=== PATIENT | male | born 1980 | race Caucasian/White ===

== ENCOUNTER 2017-08-22 12:11 | Inpatient (IN) | payer BC, OTHER ==
[~2017-08-22] VITALS: Ht 185.4 cm; Wt 104.3 kg
[2017-08-22] MEDS ORDERED: MIRALAX 17 GM POWD.PACK PO PRN (14:45)
[2017-08-22] MEDS ORDERED: ACETAMINOPHEN 325 MG TABLET PO PRN (14:45)
[2017-08-22] MEDS ORDERED: DICYCLOMINE HCL 20 MG TABLET PO PRN (14:45)
[2017-08-22] MEDS ORDERED: LORAZEPAM 2 MG/1 ML VIAL IM PRN (14:45)
[2017-08-22] MEDS ORDERED: THIAMINE HCL 200 MG/2 ML VIAL IM ONE (14:45)
[2017-08-22] MEDS ORDERED: LOPERAMIDE HCL 2 MG CAPSULE PO PRN ×2 (14:45)
[2017-08-22] MEDS ORDERED: MAGNESIUM HYDROXIDE 30 ML LIQUID UDC PO PRN (14:45)
--- NOTE | 2017-08-22 14:59 | NUR ---
PRE ASSESSMENT: A 36 Y O MALE IN INTAKE. HIS GAIT IS STEADY. BP 137/101 P 100 96% O2 SAT. HE STATES HE HAS BEEN ON A 6 DAY DRINKING ETOH BINGE. HE STATES HE HAD 60 DAYS SOBER. HE IS EMOTIONAL AND STATES HE WOULD RATHER TALK IN PRIVATE THERE IS ANOTHER PATIENT PRESENT AND HE WANTS PRIVACY. WILL ASSESS ON UNIT.
[2017-08-22] MEDS ORDERED: DEXL60CA3 PO (15:06)
[2017-08-22] MEDS ORDERED: FLUO20CA36 PO (15:07)
[2017-08-22 15:21] LABS: *AMPHETAMINE, URINE NEGATIVE (NEGATIVE); *BARBITURATE, URINE NEGATIVE (NEGATIVE); *CANNABINOID, URINE NEGATIVE (NEGATIVE); *COCCAINE, URINE NEGATIVE (NEGATIVE); *OPIATE, URINE NEGATIVE (NEGATIVE); *PHENCYCLIDINE SCREEN,URINE NEGATIVE (NEGATIVE)
[2017-08-22] MEDS: ONDANSETRON ODT 4 MG TAB.RAPDIS SL PRN (16:16)
[2017-08-22 16:20] LABS: BASOPHILS % (AUTO) 0.2 % (0.0-2.0); EOSINOPHILS % (AUTO) 0.2 % (0.0-7.0); HEMATOCRIT 50.7 % (40-50); HEMOGLOBIN 17.1 G/DL (14.0-18.0); LYMPHOCYTES # (AUTO) 1.8 K/UL (0.8-4.8); LYMPHOCYTES % (AUTO) 30.2 % (20.5-51.5); MEAN CORPUSCULAR HEMOGLOBIN 27.7 UUG (27.0-31.0); MEAN CORPUSCULAR HGB CONC 34 g/dL (32.0-37.0); MEAN CORPUSCULAR VOLUME 82.1 FL (82.0-92.0); MONOCYTES # (AUTO) 0.4 K/UL (0.1-1.30); MONOCYTES % (AUTO) 6.3 % (0.0-11.0); NEUTROPHILS # (AUTO) 3.7 K/UL (1.8-8.9); NEUTROPHILS % (AUTO) 63.1 % (38.5-71.5); PLATELET COUNT (AUTO) 166 K/UL (150-450); RED BLOOD CELL COUNT(AUTO) 6.18 MIL/UL (4.7-6.1); WHITE BLOOD COUNT (AUTO) 5.9 K/UL (4.0-11.2)
[2017-08-22] MEDS: LORAZEPAM 1 MG TABLET PO PRN ×3 (16:23→23:40)
--- NOTE | 2017-08-22 16:30 | NUR ---
ADMISSION: A 36 YO MALE ADMITTED FOR MEDICALLY SUPERVISED WITHDRAWAL OF ETOH. HE REPORTS DRINKING 1 LITER OF VODKA DAILY SINCE . HE STATES HE LAST DRANK 300 ML OF VODKA EARLY TODAY BUT HAS BEEN DRINKING AROUND THE CLOCK WITH VERY LITTLE SLEEP. HE DENIES OTHER DRUG USE. HE STATES HE HAD 60 DAYS OF SOBRIETY AND RELAPSED ON THE . HE WAS ATTENDING [facility] IN [facility]. HE WAS ALSO AT [facility] THIS YEAR FOR RESIDENTIAL. HE LIVES WITH HIS AND TWO KIDS. HE STATES HE CANNOT STOP DRINKING ON HIS OWN AND NEEDS HELP. 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 HE PRESENTS FIDGETY AND RESTLESS WITH ANXIOUS MOOD AND CONGRUENT AFFECT. HE IS SWEATING AROUND BROW AREA AND STATES HE IS CRAVING A DRINK.OFFERED HE REPORTS HISTORY OF DEPRESSION AND GERD. HE TAKES 60 MG OF PROZAC DAILY AND DEXILANT AT HOME. BE BROUGHT PROZAC IN WITH HIM. PT DENIES PCP. HE DENIES S/I AND H/I. PT HAS EMOTIONAL OUTBURSTS DURING ASSESSMENT AND DISCUSSES HOW BAD HE HAS MESSED UP HIS LIFE. ALAN 15 ON ADMISSION. ORIENTED PT TO STAFF AND UNIT. ENCOURAGED INCREASED FLUIDS. PT C/O N/V AND HAD TO RUN INTO BATHROOM TO VOMIT DURING ASSESSMENT. WILL ADMINISTER ZOFRAN PRN ORDERED. WILL CONTINUE TO MONITOR AND PROVIDE SAFE AND SUPPORTIVE ENVIRONMENT. Addendum: 08/22/17 at 1716 by AJIT BURT RN ALAN 16 ATIVAN 2 MG PO PRN ADMINISTERED ORDERED AFTER ADMINISTERING THIAMINE IM AND ZOFRAN ODT PRN. WILL MONITOR EFFECTIVENESS.
[2017-08-22 16:32] LABS: BILIRUBIN,TOTAL 0.9 mg/dL (0.2-1.0); MAGNESIUM 1.7 mg/dL (1.8-2.4); POTASSIUM 3.5 mmol/L (3.5-5.1); TOTAL PROTEIN, SERUM 8.4 g/dL (6.4-8.2)
[2017-08-22 16:37] VITALS: BP 137/101
--- NOTE | 2017-08-22 17:30 | NUR ---
PRN ATIVAN WAS EFFECTIVE. CIWA 8. ZOFRAN EFFECTIVE. HE DENIES NAUSEA.
[2017-08-22] MEDS ORDERED: MAGNESIUM OXIDE 400 MG TABLET PO ONE (18:15)
--- NOTE | 2017-08-22 19:25 | NUR ---
START OF SHIFT Received report from day shift nurse. Pt is lying in bed resting. He is a 36 yo male admitted to [facility] today for ETOH dependence. He is A&O and ambulatory. NKA, full code status, and on a regular diet. PMH of GERD and depression. On admission he reported using vodka 1 liter per day for 8 days. PRN Ativan available. He reports nausea and anxiety. He is observed to be restless, with tremors, diaphoresis, and facial flushing. Fall and seizure precautions in place. Bed is down with call light in reach.
--- NOTE | 2017-08-22 19:26 | NUR ---
END OF SHIFT: NEWLY ADMITTED. MEDICATED WITH ATIVAN ZOFRAN AND MAGNESIUM REPLACED ORDERED. PT ATE SOME DINNER AND IN HIS ROOM VOMITING. NIGHT TO ASSESS AND MEDICATE . PASSED SHIFT REPORT.
[2017-08-22] MEDS: ONDANSETRON 4 MG/2 ML VIAL IM PRN (19:30)
--- NOTE | 2017-08-22 19:30 | NUR ---
PRN Zofran and Ativan Pt reports nausea and two episodes of vomiting the water he is drinking. He has moderate tremors, diaphoresis, facial flushing, and anxiety. CIWA score 16. PRN Zofran and Ativan administered.
[2017-08-22 20:00] VITALS: BP 136/80
--- NOTE | 2017-08-22 20:30 | NUR ---
PRN Ativan and Zofran reassessment PRN Ativan and Zofran effective. Pt reports nausea is resolved. Tremors are decreased. He reports feeling more relaxed. CIWA score 6.
[2017-08-22] MEDS ORDERED: LORAZEPAM 1 MG TABLET PO ONE (21:00)
[2017-08-22 22:00] VITALS: BP 129/79
[2017-08-22] MEDS: diphenhydrAMINE 50 MG CAPSULE PO PRN (22:08)
[2017-08-22] MEDS: MAG HYDROX/AL HYDROX/SIMETH 30 ML LIQUID UDC PO PRN (22:08)
--- NOTE | 2017-08-22 22:09 | NUR ---
PRN Benadryl and Mylanta Pt reports acid indigestion and inability to sleep. PRN Benadryl and Mylanta administered.
--- NOTE | 2017-08-22 23:09 | NUR ---
PRN Benadryl and Mylanta reassessment PRN Mylanta effective. Pt reports acid indigestion is resolved. PRN Benadryl not yet effective. He has not fallen asleep. Encouraged relaxation.
[2017-08-22 23:35] VITALS: BP 115/70
[2017-08-22] MEDS: CLONIDINE HCL 0.1 MG TABLET PO PRN (23:40)
--- NOTE | 2017-08-22 23:40 | NUR ---
PRN Clonidine and Ativan 1mg Pt reports feeling anxious, restless, and unable to fall asleep. He is observed with facial flushing, clammy skin, and mild tremors. CIWA score 9.
[2017-08-23] VITALS: BP 115/70
--- NOTE | 2017-08-23 00:40 | NUR ---
PRN Clonidine and Ativan reassessment PRN Clonidine and Ativan effective. Pt is lying in bed resting with eyes closed. Respirations even and unlabored. Unable to reassess CIWA score.
[2017-08-23 04:00] VITALS: BP 120/67
[2017-08-23] MEDS: LORAZEPAM 1 MG TABLET PO PRN ×2 (04:04→08:31)
[2017-08-23] MEDS: ONDANSETRON 4 MG/2 ML VIAL IM PRN (04:04)
--- NOTE | 2017-08-23 04:11 | NUR ---
PRN Zofran and Ativan Pt has nausea with one episode of vomiting. He has moderate tremors, diaphoresis, anxiety, restlessness, and visual disturbances. Pt reports seeing colors when he closes his eyes. He A&O x4. CIWA score 18. PRN Zofran IM and PRN Ativan 2mg administered.
--- NOTE | 2017-08-23 05:11 | NUR ---
PRN Ativan and Zofran reassessment PRN Ativan and Zofran effective. Pt is lying in bed resting. Tremors and diaphoresis have improved. Anxiety is decreased. He reports feeling more relaxed. Nausea resolved. CIWA score 5.
[2017-08-23 06:06] LABS: HEPATITIS B SURFACE AG Negative (Negative)
[2017-08-23] MEDS: PANTOPRAZOLE SODIUM 40 MG TABLET.DR PO SCH (07:05)
--- NOTE | 2017-08-23 07:20 | NUR ---
END OF SHIFT Report provided to day shift nurse. Pt is lying in bed resting. He is a 36 yo male admitted to [facility] today for ETOH dependence. He is A&O and ambulatory. NKA, full code status, and on a regular diet. PMH of GERD and depression. On admission he reported using vodka 1 liter per day for 8 days. Pt was exhibiting s/s of ETOH withdrawal including tremors, diaphoresis, anxiety, and visual disturbances. PRN Ativan 2mg x2, PRN Ativan 1mg, Mylanta, Benadryl, Zofran IM x2 administered. Last CIWA 5. He drank 2000mL and slept for 5 hours. Fall and seizure precautions in place. Bed is down with call light in reach.
[2017-08-23] MEDS: ONDANSETRON ODT 4 MG TAB.RAPDIS SL PRN (07:36)
--- NOTE | 2017-08-23 07:45 | NUR ---
START OF SHIFT: RECEIVED PT LAYING IN BED RESTLESS. HE C/O NAUSEA AND STATES HE SEES COLORS AND SHAPES WHEN HE CLOSES HIS EYES. HE STATES HE FEELS FATIGUED,RESTLESS,ANXIOUS AND DEPRESSED ALL AT THE SAME TIME.HE STATES HE HAD A ROUGH NIGHT. CIWA 13. PRN ZOFRAN ODT ADMINISTERED PRIOR TO GIVING AM MEDS FOR NAUSEA. WILL MONITOR EFFECTIVENESS OF PRN MED. ENCOURAGED REST TODAY. WILL CONTINUE TO MONITOR.
[2017-08-23 08:00] VITALS: BP 111/61
[2017-08-23] MEDS: THIAMINE HCL 100 MG TABLET PO SCH (08:31)
[2017-08-23] MEDS: FOLIC ACID 1 MG TABLET PO SCH (08:31)
[2017-08-23] MEDS: MULTIVITAMINS,THERAPEUTIC TABLET PO SCH (08:31)
--- NOTE | 2017-08-23 08:36 | NUR ---
PRN ATIVAN 1 MG PO GIVEN FOR CIWA 13. WILL MONITOR EFFECTIVENESS.
[2017-08-23] MEDS ORDERED: TUBERCULIN,PURIF.PROT.DERIV. 5 TU/0.1 ML TEST ID ONE (09:00)
[2017-08-23] MEDS ORDERED: PATIENT MAY USE OWN MED- MD OK PO SCH (09:00)
--- NOTE | 2017-08-23 09:40 | NUR ---
PRN ATIVAN EFFECTIVE. CIWA 9. HE STATES HE FEELS BETTER. WILL CONTINUE TO MONITOR AND OFFER SUPPORT.
[2017-08-23 12:00] VITALS: BP 139/92
[2017-08-23] MEDS: FLUOXETINE HCL 20 MG CAPSULE PO SCH (12:10)
[2017-08-23] MEDS: LORAZEPAM 1 MG TABLET PO SCH ×3 (13:33→20:41)
[2017-08-23 16:00] VITALS: BP 126/87
[2017-08-23] MEDS ORDERED: LORAZEPAM 1 MG TABLET PO PRN ×2 (16:00)
--- NOTE | 2017-08-23 19:04 | NUR ---
END OF SHIFT: PT STARTED MODIFIED ATIVAN TAPER TODAY. LAST CIWA 7. HE C/O NAUSEA THIS AM AND SEVERE ANXIETY. PRN ZOFRAN AND PRN ATIVAN GIVEN AND EFFECTIVE. PT STATES HE HAS FELT BETTER DAY PROGRESSES AND STATES DETOX MEDS ARE EFFECTIVE. WILL PASS SHIFT REPORT TO ONCOMING NIGHT NURSE.
[2017-08-23 20:00] VITALS: BP 132/76
--- NOTE | 2017-08-23 20:00 | NUR ---
Start of Shift Pt is a 36 year old male admitted for ETOH dependence, placed on Ativan taper. Pt reported consuming Vodka 1 liter daily x8 days. PMH: depression and GERD. NKA, regular diet, fall/seizure precautions and full code. Upon assessment, pt reports feeling anxious, mild chills with hot/cold flashes, respirations even/unlabored, denies SOB/chest pain, denies n/v/d, medications due, safety measures in place, call light within reach, side rails up x2, bed locked and in low position. Will continue to monitor.
[2017-08-23] MEDS: GABAPENTIN 300 MG CAPSULE PO SCH (20:41)
[2017-08-23] MEDS: MAG HYDROX/AL HYDROX/SIMETH 30 ML LIQUID UDC PO PRN (20:48)
--- NOTE | 2017-08-23 20:48 | NUR ---
PRN Administration Pt reports heartburn, requests relief. Maalox 30ml PRN administered. Safety measures in place, will continue to monitor.
--- NOTE | 2017-08-23 21:48 | NUR ---
PRN Reassessment Upon reassessment, pt reports relief of heartburn. Maalox effective. Safety measures in place, will continue to monitor.
[2017-08-24] VITALS: BP 112/70
--- NOTE | 2017-08-24 | NUR ---
CIWA deferred due to pt sleeping, to assess while pt is awake as ordered. BP 112/70, pulse 65, SpO2 98% room air, resp 14, temp 98.1, no pain 0/[address], will continue to monitor.
--- NOTE | 2017-08-24 04:00 | NUR ---
CIWA deferred due to pt sleeping, to assess while pt is awake as ordered. Pt refused to be woken up for 0400 VS assessment Safety measures in place, will continue to monitor.
[2017-08-24] MEDS: PANTOPRAZOLE SODIUM 40 MG TABLET.DR PO SCH (06:58)
--- NOTE | 2017-08-24 07:00 | NUR ---
End of Shift Pt is a 36 year old male admitted for ETOH dependence, placed on Ativan taper. Pt reported consuming Vodka 1 liter daily x8 days. PMH: depression and GERD. NKA, regular diet, fall/seizure precautions and full code. During shift, pt reported feeling anxious, mild chills with hot/cold flashes scheduled taper medications administered, effective in management of s/s of withdrawal, as reported per pt, CIWA 6. Maalox PRN administered due to reports of heartburn, effective. Pt slept for 7 hours, intake of 1000 ml PO, voids x1 and stool x0. Safety measures in place, call light within reach, side rails up x2, bed locked and in low position. Endorsed to day shift nurse.
[2017-08-24 08:00] VITALS: BP 119/83
--- NOTE | 2017-08-24 08:15 | NUR ---
START OF SHIFT: RECEIVED PT LAYING IN BED A/O X 4. HE REPORTS ANXIETY AND DEPRESSION AND VERBALIZES WANTING TO LEAVE BEFORE DETOX IS COMPLETED. ENCOURAGED HIM TO COMPLETE DETOX AND FOCUS ON RECOVERY CIWA 4. ATIVAN TAPER IN PROGRESS. DISCUSSED IMPORTANCE OF RELAXATION TECHNIQUES AND DISCUSSED GUIDED MEDITATION. ENCOURAGED HIM TO TALK WITH CLINICIAN. WILL CONTINUE TO MONITOR AND PROVIDE SUPPORT.
[2017-08-24] MEDS: FOLIC ACID 1 MG TABLET PO SCH (08:52)
[2017-08-24] MEDS: MULTIVITAMINS,THERAPEUTIC TABLET PO SCH (08:52)
[2017-08-24] MEDS: GABAPENTIN 300 MG CAPSULE PO SCH ×2 (08:53→20:55)
[2017-08-24] MEDS: THIAMINE HCL 100 MG TABLET PO SCH (08:53)
[2017-08-24] MEDS: LORAZEPAM 1 MG TABLET PO SCH ×2 (08:54→15:00)
[2017-08-24] MEDS: FLUOXETINE HCL 20 MG CAPSULE PO SCH (08:54)
[2017-08-24 12:00] VITALS: BP 138/91
[2017-08-24 16:00] VITALS: BP 144/63
--- NOTE | 2017-08-24 16:00 | NUR ---
PT REFUSED 1500 ATIVAN AND STATES IT MAKES HIM FEEL TOO SLEEPY IN THE MIDDLE OF THE DAY. HE STATES HE WILL TAKE TONIGHT'S DOSE. WILL CONTINUE TO MONITOR AND OFFER SUPPORT.
--- NOTE | 2017-08-24 19:04 | NUR ---
END OF SHIFT: PT STARTED MODIFIED ATIVAN TAPER TODAY. LAST CIWA 2. HE C/O MILD ANXIETY AND FEELS RESTLESS AND VERBALIZING WANTING TO GO HOME. ENCOURAGED HIM TO STAY AND COMPLETE DETOX. HE REFUSED 1500 ATIVAN AND STATES IT MAKES HIM TOO SLEEPY. WILL PASS SHIFT REPORT TO [facility] NIGHT NURSE. Addendum: 08/24/17 at 1918 by AJIT BURT RN PT CONTINUES ON ATIVAN TAPER. HE STARTED IT YESTERDAY.
[2017-08-24 20:00] VITALS: BP 138/93
--- NOTE | 2017-08-24 20:00 | NUR ---
Start of Shift Pt is a 36 year old male admitted for ETOH dependence, placed on Ativan taper. Pt reported consuming Vodka 1 liter daily x8 days. PMH: depression and GERD. NKA, regular diet, fall/seizure precautions and full code. Upon assessment, pt reports feeling anxious, skin noted with sweat, face flushed, respirations even/unlabored, denies SOB/chest pain, denies n/v/d, medications due, safety measures in place, call light within reach, side rails up x2, bed locked and in low position. Will continue to monitor.
[2017-08-24] MEDS: IBUPROFEN 600 MG TABLET PO PRN (20:54)
--- NOTE | 2017-08-24 20:54 | NUR ---
PRN Administration Pt reports headache rated 5/10, requests relief. Motrin 600mg PRN administered. Safety measures in place, will continue to monitor.
[2017-08-24 21:00] VITALS: BP 132/89
[2017-08-24] MEDS ORDERED: LORAZEPAM 1 MG TABLET PO SCH (21:00)
--- NOTE | 2017-08-24 21:54 | NUR ---
PRN Reassessment Upon reassessment, pt reports relief of headache. Motrin effective, safety measures in place, will continue to monitor.
[2017-08-25] VITALS: BP_SYST 107; BP_SYST 125; BP_DIAS 69; BP_DIAS 83
[2017-08-25] MEDS: PANTOPRAZOLE SODIUM 40 MG TABLET.DR PO SCH (06:51)
--- NOTE | 2017-08-25 07:00 | NUR ---
End of Shift Pt is a 36 year old male admitted for ETOH dependence, placed on Ativan taper. Pt reported consuming Vodka 1 liter daily x8 days. PMH: depression and GERD. NKA, regular diet, fall/seizure precautions and full code. During shift, pt reported feeling anxious, skin noted with sweat, face flushed scheduled taper medications administered, COWA 4 decreased to CIWA 2. Motrin 600mg PRN administered for headache, effective. Pt slept for 6 hours, intake of 1456 ml PO, voids x2 and stool x0. Safety measures in place, call light within reach, side rails up x2, bed locked and in low position. Endorsed to day shift nurse.
--- NOTE | 2017-08-25 07:33 | NUR ---
BEGINNING OF SHIFT Patient endorsement report received from operations supervisor 2nd shift nurse, all pertinent information discussed. Patient is a 36 year old male admitted on: 08/22/2017 with admitting Dx: etoh Dependence. Patient continues on Ativan taper as ordered, well tolerated, no ASE noted. Patient with last ciwa score of: 2. Patient slept for 6 hours. Patient received awake, alert and oriented x4, educated patient regarding plan of care for the day and medication regimen with good verbal understanding. Safety measures in place. call light kept with in reach, Fall and seizure precautions in place. will continue to monitor closely.
[2017-08-25 08:09] VITALS: BP 116/76
[2017-08-25] MEDS: GABAPENTIN 300 MG CAPSULE PO SCH ×3 (08:40→20:53)
[2017-08-25] MEDS: FOLIC ACID 1 MG TABLET PO SCH (08:40)
[2017-08-25] MEDS: MULTIVITAMINS,THERAPEUTIC TABLET PO SCH (08:40)
[2017-08-25] MEDS: FLUOXETINE HCL 20 MG CAPSULE PO SCH (08:40)
[2017-08-25] MEDS: THIAMINE HCL 100 MG TABLET PO SCH (08:40)
[2017-08-25] MEDS ORDERED: LORAZEPAM 1 MG TABLET PO SCH (09:00)
--- NOTE | 2017-08-25 10:49 | NUR ---
Therapist prompted client about group times. Client stated he will attend all groups today.
[2017-08-25 13:50] VITALS: BP 125/81
[2017-08-25 16:53] VITALS: BP 133/87
--- NOTE | 2017-08-25 18:51 | NUR ---
END OF SHIFT Patient alert and oriented x4, patient compliant with therapeutic plan of care during shift. Vital signs WNL during shift.patient with admitting Dx: etoh dependence. Continues under close observation, patient was seen and examined by Dr. villar during shift. Patients Ativan taper was completed as of today per Dr. villar. 0900 assessment patient presented with: barely sweating, and anxiety with ciaw score of: 4; 1300 assessment patient presented with: mild anxiety with ciwa score of: 1; 1700 assessment patient presented with: ciwa score of:1. Patient encouraged adequate PO fluid intake as tolerated, Encouraged to attend group therapies/sessions to learn new coping skills to prevent relapse, denies any SI/HI. Patient administered no PRNs during shift. Patients safety measures are in place. all needs met and rendered. Patient endorsement report given to general engineer nurse, all pertinent information discussed. Safety measurers in place. will continue to monitor.
--- NOTE | 2017-08-25 19:00 | NUR ---
START OF SHIFT Patient is a 36-year-old male admitted on 08/22/17 for ETOH dependence. Patient has a past medical history of depression and GERD. Patient is FULL code, NKA, and on a regular diet. Patient is has completed a modified Ativan taper this morning. Upon assessment, patient is alert and oriented x4. Patient reports feeling "like I'm getting a cold" and he is anxious to "go home." Patient is on fall and seizure precautions, with no history of seizure. Safety measures are in place, bed is locked in low position, call light within reach. Will continue to monitor.
[2017-08-25] MEDS ORDERED: GABA-534 PO (19:01)
[2017-08-25] MEDS ORDERED: DIPH50CA37 PO (19:01)
[2017-08-25] MEDS ORDERED: IBUP-1955 PO (19:01)
[2017-08-25 20:00] VITALS: BP 153/101
[2017-08-25] MEDS: CLONIDINE HCL 0.1 MG TABLET PO PRN (20:53)
[2017-08-25] MEDS: MAG HYDROX/AL HYDROX/SIMETH 30 ML LIQUID UDC PO PRN (20:53)
[2017-08-25] MEDS: IBUPROFEN 600 MG TABLET PO PRN (20:53)
--- NOTE | 2017-08-25 20:53 | NUR ---
PRN MOTRIN, CLONIDINE, AND MAALOX Patient complains of heartburn and generalized body aches. Patient's current blood pressure is 153/101. PRN Maalox, Motrin, and Clonidine given PO. Safety measures are in place, bed is locked in low position, side rails up x2, call light within reach. Will reassess in one hour.
--- NOTE | 2017-08-25 21:53 | NUR ---
PRN MOTRIN, CLONIDINE, AND MAALOX REASSESSMENT Patient reports improvement in heartburn and body aches. Current blood pressure is 132/80. PRN medications effective. Safety measures are in place, side rails up x2, bed is locked in low position, call light within reach. Will continue to monitor.
[2017-08-25] MEDS: diphenhydrAMINE 50 MG CAPSULE PO PRN (22:50)
--- NOTE | 2017-08-25 22:50 | NUR ---
PRN BENADRYL Patient reports difficulty falling asleep, and is requesting aid. PRN Benadryl given PO. Safety measures are in place, bed is locked in low position, call light within reach. Will reassess in one hour.
--- NOTE | 2017-08-25 23:50 | NUR ---
PRN BENADRYL REASSESSMENT Patient is resting in bed with eyes closed. Respirations are 16/min, even and unlabored. Safety measures are in place, side rails up x2, bed is locked in low position, call light within reach. Will continue to monitor.
--- NOTE | 2017-08-26 | NUR ---
MIDNIGHT VITAL SIGNS REFUSED, CIWA DEFERRED Patient refused midnight vitals, CIWA deferred due to patient asleep; CIWA is to be scored and assessed while patient is awake per protocol. Patient's respirations are 16/min, even and unlabored. Safety measures are in place, side rails up x2, bed is locked in low position, call light within reach. Will continue to monitor.
--- NOTE | 2017-08-26 04:00 | NUR ---
4AM VITAL SIGNS REFUSED, CIWA DEFERRED Patient refused 4AM vitals, CIWA deferred due to patient asleep; CIWA is to be scored and assessed while patient is awake per protocol. Patient's respirations are 16/min, even and unlabored. Safety measures are in place, side rails up x2, bed is locked in low position, call light within reach. Will continue to monitor.
--- NOTE | 2017-08-26 07:12 | NUR ---
END OF SHIFT Patient is a 36-year-old male admitted on 08/22/17 for ETOH dependence. Patient has a past medical history of depression and GERD. Patient is FULL code, NKA, and on a regular diet. Patient is has completed a modified Ativan taper yesterday. Patient slept for 7 hours, total intake 1279 mL, void x4, stool x0. Patient received PRN Clonidine for BP>140/90, Maalox for heartburn, Motrin for generalized body aches and Benadryl for sleep aid. All PRN meds were effective. Patient's last CIWA was 5. Safety measures are in place, bed is locked in low position, side rails up x2, call light within reach. Will endorse to day shift.
[2017-08-26] MEDS: PANTOPRAZOLE SODIUM 40 MG TABLET.DR PO SCH (07:19)
--- NOTE | 2017-08-26 07:36 | NUR ---
BEGINNING OF SHIFT Patient endorsement report received from fermenter helper nurse, all pertinent information discussed. Patient is a 36 year old male admitted on: 08/22/2017 with admitting Dx: etoh Dependence. Patient continues on Ativan taper as ordered, well tolerated, no ASE noted. Patient with last ciwa score of: 2. Patient received PRN: Maalox, Motrin, and clonidine, medication effective. Patient slept for 7 hours. Patient received awake, alert and oriented x4, educated patient regarding plan of care for the day and medication regimen with good verbal understanding. Patient is scheduled to be discharged this morning. Safety measures in place. call light kept with in reach, Fall and seizure precautions in place. will continue to monitor closely.
[2017-08-26 08:31] VITALS: BP 115/61
[2017-08-26] MEDS ORDERED: LORAZEPAM 1 MG TABLET PO SCH (09:00)
[2017-08-26] MEDS: FLUOXETINE HCL 20 MG CAPSULE PO SCH (09:11)
[2017-08-26] MEDS: GABAPENTIN 300 MG CAPSULE PO SCH (09:12)
[2017-08-26] MEDS: FOLIC ACID 1 MG TABLET PO SCH (09:12)
[2017-08-26] MEDS: THIAMINE HCL 100 MG TABLET PO SCH (09:12)
[2017-08-26] MEDS: MULTIVITAMINS,THERAPEUTIC TABLET PO SCH (09:12)
--- NOTE | 2017-08-26 09:24 | NUR ---
DISCHARGE Patient discharged at 0924, prior to discharge patient was provided with education and teaching regarding all discharge instructions with good verbal understanding. Patient noted self motivated towards sobriety. no s/sx of withdrawal, patient with last ciwa score of: 0. vital signs WNL. Patients prescriptions, home medications and discharge instructions were placed in patients personal duffel bag. patient off the unit in stable condition at 0924.
== END 2017-08-26 09:25 | disposition home or self-care (01) | DRG 895 ==
LOC: SRC 13:44
PROVIDERS: ADMIT Internal Medicine; ATTEND Internal Medicine
DX: F10.232 Alcohol dependence with withdrawal with perceptual disturbance (principal); K70.10 Alcoholic hepatitis without ascites; I15.9 Secondary hypertension, unspecified; E83.42 Hypomagnesemia; F33.1 Major depressive disorder, recurrent, moderate; K29.20 Alcoholic gastritis without bleeding; Y90.9 Presence of alcohol in blood, level not specified; Z79.899 Other long term (current) drug therapy; Z81.8 Family history of other mental and behavioral disorders; Z81.3 Family history of other psychoactive substance abuse and dependence; F17.210 Nicotine dependence, cigarettes, uncomplicated; Z81.1 Family history of alcohol abuse and dependence; Z84.89 Family history of other specified conditions; F41.9 Anxiety disorder, unspecified; Z80.9 Family history of malignant neoplasm, unspecified; R73.9 Hyperglycemia, unspecified
CPT/HCPCS: 36415; 70030-TC; 80307; 83735; 85025; 86592; 86705; 86803; 87340; 87806; G0480; J2405; J3411; Q0162; Q0163